=== PATIENT | male | born 1960 | race Two or more races ===

== ENCOUNTER 2021-02-03 10:50 | Emergency (ER) | payer SELFPAY ==
[~2021-02-03] VITALS: Ht 165.1 cm; Wt 75.0 kg
[2021-02-03 11:25] VITALS: BP 151/84
[2021-02-03] MEDS ORDERED: LIDOCAINE 5% TRANSDERMAL PATCH TD ONE (11:30)
[2021-02-03] MEDS ORDERED: KETOROLAC TROMETHAMINE 30 MG/ML VIAL IM ONE (11:30)
[2021-02-03] MEDS ORDERED: CYCLOBENZAPRINE HCL 10 MG TABLET PO ONE (11:30)
== END 2021-02-03 13:16 | disposition home or self-care (01) ==
LOC: EMS 10:52
DX: M54.50 Low back pain, unspecified (principal)
CPT/HCPCS: 96372; 99283; J1885